=== PATIENT | male | born 2000 | race Caucasian/White ===

== ENCOUNTER 2023-10-01 11:06 | Emergency (ER) | payer SELFPAY ==
[2023-10-01 11:11] VITALS: BP 148/90
--- NOTE | 2023-10-01 12:17 | ED.GENMED ---
History of Present Illness
General
Chief Complaint: Head Injury
Source: patient
Exam Limitations: none
Time Seen by Provider: 10/01/23 11:44
Nursing documentation reviewed up to this point in time: agreed with
History of Present Illness
History of Present Illness:
24-year-old male presenting to the emergency department today after hitting his forehead on a pipe while working yesterday. At that did not blackout and tough through the rest of the day. Today had some ongoing headache fogginess decreased
appetite and nausea. He tried going to work and symptoms worsen that he was then sent to the urgent care who then sent him to the ER. Denies any vomiting not on blood thinners denies any numbness weakness chest pain shortness of breath or
additional concerns otherwise symptoms are improved at rest
Past History
Past History
ED Past Medical History: None
ED Past Surgical History: Other (Pilonidal cyst, cleft lip)
Social History
Tobacco: Non-smoker
Alcohol: Occasional
Drug: None
Personal: Single
Living: with family
Employment: Student
Family History
Family History: Other (Noncontributory)
Review of Systems
Review of Systems
Allergies reviewed?: Yes
All Other Systems: ROS reviewed and negative except as documented in HPI and ROS
Phy Exam
Physical Exam
Physical Exam:
GENERAL: Alert , in no apparent distress
EYE: pupils equal and reactive
NECK: Supple, no significant adenopathy.
ENT: o/p clr, mmm.
CARDIAC: Regular rate and rhythm .
LUNGS: Clear breath sounds bilaterally, no acute respiratory distress, no wheezes/rales/rhonchi
ABDOMEN: Soft, without focal tenderness, no r/g, no cvat
NEUROLOGICAL: Alert and oriented, no focal neuro deficits 5-5 upper and lower extremity strength normal sensation with palpating bilaterally normal finger-nose and [id number] no pronator drift
SKIN: Warm and dry, skin intact.
MUSCULOSKELETAL: No edema, well perfused.
PSYCH: Normal and appropriate interaction.
Course
Vital Signs
Initial and Last Documented VS:
Initial Vital Signs
Temp Pulse Resp BP Pulse Ox
98.2 F 65 18 148/90 100
10/01/23 11:11 10/01/23 11:11 10/01/23 11:11 10/01/23 11:11 10/01/23 11:11
Last Documented Vital Signs
Temp Pulse Resp BP Pulse Ox
98.2 F 65 18 148/90 100
10/01/23 11:11 10/01/23 11:11 10/01/23 11:11 10/01/23 11:11 10/01/23 11:11
MDM/Problems Addressed
MDM/Problems Addressed:
23-year-old male presenting to the emergency department today with concerns of ongoing headache after hitting his head on a pole yesterday. Here vital signs are normal patient well-appearing normal neurologic evaluation no red flag symptoms of head
injury. [place] head CT negative. Patient with likely concussion plan for symptomatic treatment return precautions given.
*Critical Care Note
Total Time (30-74mins, 75-104mins- exclusive of procedures): Not Applicable
ED Attending Note
-
Portions of this chart may have been created with voice recognition software.� Occasional wrong word or��sound alike� substitutions may have occurred due to the inherent limitations of voice recognition software.
Discharge Plan
Departure
Patient Disposition: Home (Routine Discharge)
Date of Disposition: 10/01/23
Time of Disposition: 12:24
Patient with high blood pressure during this ER visit?: No
Condition: Good
Covid-19: Not Applicable
Discharge Problem:
Concussion
Instructions: Concussion, Adult (DC)
Prescriptions:
No Action
ibuprofen 800 mg tablet
800 mg PO QIDPRN PRN (Reason: pain, fever) Qty: 30 0RF
cefdinir 300 mg capsule
300 mg PO BID Qty: 20 0RF
Referrals:
Corby Brennan, [Family Provider] -
Stand Alone Forms: Return to Work
Activity Restrictions/Additional Instructions:
You came to the emergency department today with symptoms consistent with a concussion. Please rest and gradually increase activity over the next few days. Return to the emergency department for any worsening, new or concerning symptoms.
Discharge Date and Time
Print Language: SAMOAN
[2023-10-01 12:43] VITALS: BP 124/62
== END 2023-10-01 12:43 | disposition home or self-care (01) ==
LOC: EMR 11:06
PROVIDERS: EMERGENCY PHYSICIAN Emergency Medicine; FAMILY PHYSICIAN Family Medicine
DX: S06.0XAA Concussion with loss of consciousness status unknown, initial encounter (principal); W22.8XXA Striking against or struck by other objects, initial encounter; Y99.0 Civilian activity done for income or pay
CPT/HCPCS: 99282